=== PATIENT | female | born 1930 | race Caucasian/White ===

== ENCOUNTER 2019-02-02 17:28 | Emergency (ER) | payer OTHER ==
--- NOTE | 2019-02-02 19:11 | RAD REPORT ---
EXAM DESCRIPTION: RAD - Knee Left 2 View - 02/02/2019 7:00 pm CLINICAL HISTORY: fall Fall, trauma, pain COMPARISON: No comparisons FINDINGS: Tricompartmental osteoarthritis is present. No fracture or joint effusion.
--- NOTE | 2019-02-02 19:12 | RAD REPORT ---
EXAM DESCRIPTION: RAD - Knee Right 3 View - 02/02/2019 7:00 pm CLINICAL HISTORY: fall Trauma, fall COMPARISON: No comparisons FINDINGS: Severe tricompartmental osteoarthritis is present. [id number] is noted. No evidence of f racture or joint effusion.
--- NOTE | 2019-02-02 19:51 | RAD REPORT ---
EXAM DESCRIPTION: CT - CTHCSPWOC - 02/02/2019 7:42 pm CLINICAL HISTORY: Trauma, head and neck injury. fall, head injury COMPARISON: <Comparisons> TECHNIQUE: Axial 5 mm thick images of the head were obtained. Axial 2 mm thick images of the cervical spine were obtained with sagittal and coronal reconstruction images generated and reviewed. All CT scans are performed using dose optimization technique as appropriate and may include automated exposure control or mA/KV adjustment according to patient size. FINDINGS: CT HEAD WITHOUT CONTRAST: No acute hemorrhage, hydrocephalus or extra-axial collection is identified.Moderate generalized brain atrophy is present with moderate periventricular and deep white matter chronic microvascular ischemi c changes.No areas of brain edema or midline shift. The paranasal sinuses and mastoids are clear.The calvarium is intact. CT CERVICAL SPINE WITHOUT CONTRAST: No fracture or subluxation.Mild lower cervical degenerative changes.No prevertebral soft tissues swel ling is identified. IMPRESSION: No acute intracranial or cervical spine findings.
--- NOTE | 2019-02-02 19:58 | RAD REPORT ---
EXAM DESCRIPTION: CT - CTFB CLINICAL HISTORY: fall Trauma, fall, facial pain and swelling. COMPARISON: No comparisons TECHNIQUE: Axial 2 mm thick images of the face were obtained with sagittal and coronal reconstructio n images. All CT scans are performed using dose optimization technique as appropriate and may include automated exposure control or mA/KV adjustment according to patient size. FINDINGS: No acute facial bone fracture is seen.The mandible is intact. The globes and orbital contents are grossly unremarkable.The paranasal sinuses and mastoids are clear . IMPRESSION: Negative for facial bone fracture.
[2019-02-02] MEDS ORDERED: HYDROCODONE/APAP 10/325 TAB ONE (20:17)
--- NOTE | 2019-02-02 21:02 | RAD REPORT ---
EXAM DESCRIPTION: RAD - Hip Left 2 View - 02/02/2019 8:55 pm CLINICAL HISTORY: PAIN Trauma, fall COMPARISON: No comparisons FINDINGS: No fracture or dislocation.
--- NOTE | 2019-02-02 21:03 | RAD REPORT ---
EXAM DESCRIPTION: RAD - Hip Right 2 View - 02/02/2019 8:55 pm CLINICAL HISTORY: PAIN Trauma, fall COMPARISON: No comparisons FINDINGS: No acute fracture or dislocation identified.
--- NOTE | 2019-02-02 21:12 | RAD REPORT ---
EXAM DESCRIPTION: RAD - Pelvis - 02/02/2019 8:55 pm CLINICAL HISTORY: PAIN Fall, pain COMPARISON: PELVIS dated 09/29/2013; Hip Right 2 View dated 02/02/2019 FINDINGS: Diffuse osteopenia. No fracture is seen.
--- NOTE | 2019-02-02 21:38 | ER ---
Nurse's Notes [facility] Name: Dina Thibodeaux Age: 88 yrs Sex: Female : 1930 Arrival Date: 02/02/2019 Time: 17:29 Bed 17 Private MD: Diagnosis: Internal derangement of knee;Superficial injury of head Presentation: 02/02 17:30 Presenting complaint: EMS states: S/P MECHANICAL FALL, NO LOC, B KNEE/HIP PAIN, R ORBIT bp PAIN. Transition of care: patient was not received from another setting of care. Onset of symptoms was February 02, 2019 at 17:00. Risk Assessment: Do you want to hurt yourself or someone else? Patient reports no desire to harm self or others. Initial Sepsis Screen: Does the patient meet any 2 criteria? No. Patient's initial sepsis screen is negative. Does the patient have a suspected source of infection? No. Patient's initial sepsis screen is negative. Care prior to arrival: None. 17:30 Method Of Arrival: EMS: [facility] bp 17:30 Acuity: MARIANO 3 bp Triage Assessment: 17:30 General: Appears in no apparent distress. comfortable, obese, Behavior is calm, bp cooperative, appropriate for age. Pain: Complains of pain in right eye, left hip, right hip, right knee and left knee. EENT: No deficits noted. Neuro: Level of Consciousness is awake, alert, obeys commands, Oriented to person, place, time, situation, Appropriate for age. Cardiovascular: No deficits noted. Respiratory: No deficits noted. GI: No signs and/or symptoms were reported involving the gastrointestinal system. : No signs and/or symptoms were reported regarding the genitourinary system. Derm: No deficits noted. Musculoskeletal: No deficits noted. Historical: - Allergies: 17:37 No Known Allergies; bp - Home Meds: 17:37 escitalopram oxalate 10 mg oral tab 1 tab once daily [Active]; aripiprazole 5 mg oral bp tab 1 tab once daily [Active]; folic acid 20 mg Oral cap daily [Active]; Arthrotec 75 75-200 mg-mcg oral TbID 1 tab 2 times per day [Active]; omeprazole 20 mg Oral cpDR 1 cap once daily [Active]; - PMHx: 17:37 Arthritis; bp - Immunization history:: Adult Immunizations up to date. - Social history:: Smoking status: Patient/guardian denies using tobacco. - Ebola Screening: : No symptoms or risks identified at this time. Screenin:30 Abuse screen: Denies threats or abuse. Denies injuries from another. Nutritional bp screening: No deficits noted. Tuberculosis screening: No symptoms or risk factors identified. Fall Risk None identified. Assessment: 17:30 General: SEE TRIAGE NOTE. bp 18:28 Reassessment: PROVIDER AT B/S. bp 19:15 Reassessment: Patient appears in no apparent distress at this time. Patient and/or cc3 family updated on plan of care and expected duration. Pain level reassessed. Patient is alert, oriented x 3, equal unlabored respirations, skin warm/dry/pink. Received this female patient from morning shift RN Manny as a case of fall injury. No IV cannula in situ. General: Appears in no apparent distress. uncomfortable, Behavior is calm, cooperative, appropriate for age. Pain: Complains of pain in left leg and right leg and pelvis and right eye and right hip and left hip and right knee and left knee. Neuro: Level of Consciousness is awake, alert, obeys commands, Oriented to person, place, time, situation, Appropriate for age. Cardiovascular: Denies chest pain, Heart tones S1 S2 present Capillary refill < 3 seconds in bilateral fingers Patient's skin is warm and dry. Respiratory: Airway is patent Respiratory effort is even, unlabored, Respiratory pattern is regular, symmetrical, Breath sounds are clear bilaterally. GI: Abdomen is round obese, Bowel sounds present X 4 quads. Abd is soft and non tender X 4 quads. : No signs and/or symptoms were reported regarding the genitourinary system. EENT: Sclera/Cornea are reddened in right eye. Derm: Skin is intact, is fragile, Skin is pink, warm \T\ dry. normal, Bruising that is on right eye, right knee. Musculoskeletal: Circulation, motion, and sensation intact. Swelling present in right knee. Injury Description: Head injury. 20:25 Reassessment: Patient appears in no apparent distress at this time. Patient and/or cc3 family updated on plan of care and expected duration. Pain level reassessed. Patient is alert, oriented x 3, equal unlabored respirations, skin warm/dry/pink. 21:45 Reassessment: Patient appears in no apparent distress at this time. Patient and/or cc3 family updated on plan of care and expected duration. Pain level reassessed. Patient is alert, oriented x 3, equal unlabored respirations, skin warm/dry/pink. AALIYAH Pulido discharged the patient home, no prescription given. No IV cannula in situ. Patient left ER vitally stable by wheelchair escorted by industrial technology education teacher Lindsay. No valuables left in the patient's room. Patient denies pain at this time. Patient states feeling better. Patient states symptoms have improved. Vital Signs: 17:30 BP 135 / 69; Pulse 70; Resp 17; Temp 97.1; Pulse Ox 100% ; Weight 100.24 kg; Height 5 bp ft. 4 in. (162.56 cm); 18:28 BP 131 / 54; Pulse 69; Resp 17; Pulse Ox 100% ; bp 19:30 BP 138 / 64; Pulse 75; Resp 18 S; Temp 97.9(O); Pulse Ox 100% on R/A; cc3 20:13 BP 129 / 67; Pulse 73; Resp 16 S; Pulse Ox 99% on R/A; cc3 21:30 BP 132 / 61; Pulse 68; Resp 16 S; Pulse Ox 100% on R/A; Pain 0/10; cc3 17:30 Body Mass Index 37.93 (100.24 kg, 162.56 cm) bp ED Course: 17:29 Patient arrived in ED. bp 17:30 Arm band placed on. bp 17:30 Patient has correct armband on for positive identification. Bed in low position. Call bp light in reach. Side rails up X2. 17:31 Triage completed. bp 18:20 Bartolome Pulido PA is PHCP. jmm 18:20 Neto Gaston MD is Attending Physician. jmm 18:27 Manny Garcia, DANIELLE is Primary Nurse. bp 19:02 Knee Right 3 View XRAY In Process Unspecified. EDMS 19:02 Knee Left 2 View XRAY In Process Unspecified. EDMS 19:05 Assisted to bedside commode. Linen changed. mb4 19:06 Bed in low position. Call light in reach. Side rails up X2. mb4 19:42 CT Head C Spine In Process Unspecified. EDMS 19:42 CT Facial Bones W/O Con In Process Unspecified. EDMS 20:57 Pelvis In Process Unspecified. EDMS 20:58 Hip Right 2 View In Process Unspecified. EDMS 20:58 Hip Left 2 View In Process Unspecified. EDMS 21:45 No provider procedures requiring assistance completed. Patient did not have IV access cc3 during this emergency room visit. Administered Medications: 20:22 Drug: [place] 10 mg-325 mg 1 tabs {Note: RASS - 0.} Route: PO; ca1 21:30 Follow up: Response: No adverse reaction; Pain is decreased; RASS: Alert and Calm (0) cc3 Outcome: 21:37 Discharge ordered by MD. leonard 21:45 Discharged to home via wheelchair, with family. cc3 21:45 Condition: stable 21:45 Discharge instructions given to patient, family, Instructed on discharge instructions, follow up and referral plans. Demonstrated understanding of instructions, follow-up care. 22:05 Patient left the ED. cc3 Signatures: Dispatcher [employer] EDMS Bartolome Pulido PA PA jmm Peltier, Brian, DANIELLE RN Paige Hyatt mb4 Kathi Leon cc3 Gayathri Donovan RN RN ca1
--- NOTE | 2019-02-02 21:38 | EDPHYS ---
Physician Documentation [facility] Name: Dina Thibodeaux Age: 88 yrs Sex: Female : 1930 Arrival Date: 02/02/2019 Time: 17:29 Bed 17 Private MD: ED Physician Neto Gaston HPI: 02/02 18:25 This 88 yrs old Female presents to ER via EMS with complaints of Fall Injury. jmm 18:25 Details of fall: The patient fell from an upright position, while walking. Onset: The jm symptoms/episode began/occurred acutely, just prior to arrival. Associated injuries: The patient sustained face, knees, hips. This is an 88 year old female with a history of arthritis that presents to the ED with complaints of bilateral knee pain after a fall from a standing position just prior to arrival. Patient denies LOC, vomiting. Focal point of pain is the right knee. . Historical: - Allergies: 17:37 No Known Allergies; bp - Home Meds: 17:37 escitalopram oxalate 10 mg oral tab 1 tab once daily [Active]; aripiprazole 5 mg oral bp tab 1 tab once daily [Active]; folic acid 20 mg Oral cap daily [Active]; Arthrotec 75 75-200 mg-mcg oral TbID 1 tab 2 times per day [Active]; omeprazole 20 mg Oral cpDR 1 cap once daily [Active]; - PMHx: 17:37 Arthritis; bp - Immunization history:: Adult Immunizations up to date. - Social history:: Smoking status: Patient/guardian denies using tobacco. - Ebola Screening: : No symptoms or risks identified at this time. ROS: 18:25 Constitutional: Negative for fever, chills, and weight loss, Cardiovascular: Negative jmm for chest pain, palpitations, and edema, Respiratory: Negative for shortness of breath, cough, wheezing, and pleuritic chest pain. 18:25 MS/extremity: Positive for injury or acute deformity, pain. 18:25 All other systems are negative. Exam: 18:25 Constitutional: This is a well developed, well nourished patient who is awake, alert, jmm and in no acute distress. Eyes: EOMI, no conjunctival erythema appreciated ENT: Moist Mucus Membranes Neck: Trachea midline, Supple Chest/axilla: Normal chest wall appearance and motion. 18:25 Cardiovascular: Regular rate and rhythm. No edema appreciated Respiratory: Normal respirations, no respiratory distress appreciated Abdomen/GI: Non distended, soft Back: Normal ROM 18:25 Head/face: abrasion noted to the bridge of the nose. 18:25 Musculoskeletal/extremity: right knee is diffusely tender to palpation, compartments are soft, NVI. Left knee non tender to palpation, full dorsalis pulse bilaterally. . 18:25 Skin: Appearance: Color: normal in color. 18:25 Neuro: Orientation: is normal, Mentation: is normal, Memory: is normal. 18:25 Psych: Behavior/mood is pleasant, cooperative. Vital Signs: 17:30 BP 135 / 69; Pulse 70; Resp 17; Temp 97.1; Pulse Ox 100% ; Weight 100.24 kg; Height 5 bp ft. 4 in. (162.56 cm); 18:28 BP 131 / 54; Pulse 69; Resp 17; Pulse Ox 100% ; bp 19:30 BP 138 / 64; Pulse 75; Resp 18 S; Temp 97.9(O); Pulse Ox 100% on R/A; cc3 20:13 BP 129 / 67; Pulse 73; Resp 16 S; Pulse Ox 99% on R/A; cc3 21:30 BP 132 / 61; Pulse 68; Resp 16 S; Pulse Ox 100% on R/A; Pain 0/10; cc3 17:30 Body Mass Index 37.93 (100.24 kg, 162.56 cm) bp Procedures: 21:35 Splinting: Splint applied to right leg using knee immobilizer, applied by techJennifer puga Examined by me, post splint application: neurovascular intact, 2+ distal pulses palpable, brisk capillary refill noted, Patient tolerated well. MDM: 18:25 Patient medically screened. [facility] 21:35 Data reviewed: vital signs, nurses notes. Counseling: I had a detailed discussion with edd the patient and/or guardian regarding: the historical points, exam findings, and any diagnostic results supporting the discharge/admit diagnosis, radiology results, the need for outpatient follow up, to return to the emergency department if symptoms worsen or persist or if there are any questions or concerns that arise at home. ED course: imaging studies are negative. patient advised to follow up with ortho for reevaluation. patient and family understood and agrees with the plan of care. . 02/02 18:32 Order name: Knee Right 3 View XRAY; Complete Time: 19:30 [facility] 02/02 18:32 Order name: Knee Left 2 View XRAY; Complete Time: 19:30 [facility] 02/02 18:32 Order name: CT Head C Spine; Complete Time: 20:07 [facility] 02/02 18:32 Order name: CT Facial Bones W/O Con; Complete Time: 20:07 [facility] 02/02 20:37 Order name: Pelvis; Complete Time: 21:23 [facility] 02/02 20:37 Order name: Hip Right 2 View; Complete Time: 21:23 [facility] 02/02 20:37 Order name: Hip Left 2 View; Complete Time: 21:23 [facility] 02/02 21:15 Order name: Knee Immobilizer; Complete Time: 21:33 [facility] Administered Medications: 20:22 Drug: [place] 10 mg-325 mg 1 tabs {Note: RASS - 0.} Route: PO; ca1 21:30 Follow up: Response: No adverse reaction; Pain is decreased; RASS: Alert and Calm (0) cc3 Disposition: 02/03 07:12 Co-signature as Attending Physician, Neto Gaston MD. rn Disposition: 02/02/19 21:37 Discharged to Home. Impression: Internal derangement of knee, Superficial injury of head. - Condition is Stable. - Discharge Instructions: Head Injury, Adult, Knee Pain. - Medication Reconciliation Form, Thank You Letter, Antibiotic Education, Prescription Opioid Use form. - Follow up: Private Physician; When: 2 - 3 days; Reason: Recheck today's complaints, Continuance of care, Re-evaluation by your physician. Signatures: Dispatcher [employer] [facility] Bartolome Pulido PA PA [facility] Neto Gaston MD MD rn Peltier, Brian, RN RN bp Cordel, Charlene cc3 Gayathri Donovan RN RN ca1 Corrections: (The following items were deleted from the chart) 02/02 22:05 21:37 02/02/2019 21:37 Discharged to Home. Impression: Internal derangement of knee; cc3 Superficial injury of head. Condition is Stable. Forms are Medication Reconciliation Form, Thank You Letter, Antibiotic Education, Prescription Opioid Use. Follow up: Private Physician; When: 2 - 3 days; Reason: Recheck today's complaints, Continuance of care, Re-evaluation by your physician. edd
[2019-02-02 22:12] VITALS: TEMP 97.1; O2SAT 100
[2019-02-02 22:13] VITALS: BP 131/54
== END 2019-02-02 22:05 | disposition home or self-care (01) ==
LOC: ER 17:28
DX: M23.92 Unspecified internal derangement of left knee (principal); M23.91 Unspecified internal derangement of right knee; S00.90XA Unspecified superficial injury of unspecified part of head, initial encounter; W18.30XA Fall on same level, unspecified, initial encounter; Y93.9 Activity, unspecified; Y92.9 Unspecified place or not applicable; M19.90 Unspecified osteoarthritis, unspecified site
CPT/HCPCS: 70450; 70486; 72125; 72170; 76377; 99284

== ENCOUNTER 2019-02-08 21:43 | Emergency (ER) | payer OTHER ==
--- NOTE | 2019-02-08 23:28 | EDPHYS ---
Physician Documentation [facility] Name: Dina Thibodeaux Age: 88 yrs Sex: Female : 1930 Arrival Date: 02/08/2019 Time: 21:45 Bed 5 Private MD: ED Physician Eleazar Guaman HPI: 02/08 22:30 This 88 yrs old Female presents to ER via Wheelchair with complaints of Knee cp Pain. 22:30 The patient presents with pain, swelling, tenderness, redness. cp 22:30 The complaints affect the right retana. Context: Patient reports she was seen in this ED cp last Tuesday after sustaining fall from standing and landing on both knees and face. Patient had xrays of knees that were negative for fracture but has noticed redness of lower leg today, and increased swelling. Associated signs and symptoms: Pertinent positives: calf tenderness, warmth, Pertinent negatives fever, numbness, weakness. Treatment prior to arrival includes: no previous treatment. Historical: - Allergies: 22:11 No Known Allergies; jd3 - Home Meds: 22:11 aripiprazole 5 mg Oral tab 1 tab once daily [Active]; Arthrotec 75 75-200 mg-mcg Oral jd3 TbID 1 tab 2 times per day [Active]; escitalopram oxalate 10 mg Oral tab 1 tab once daily [Active]; folic acid 20 mg Oral cap daily [Active]; omeprazole 20 mg Oral cpDR 1 cap once daily [Active]; - PMHx: 22:11 Arthritis; jd3 - Immunization history:: Adult Immunizations up to date, Flu vaccine is up to date. - Social history:: Smoking status: Patient/guardian denies using tobacco. - Ebola Screening: : Patient negative for fever greater than or equal to 101.5 degrees Fahrenheit, and additional compatible Ebola Virus Disease symptoms. ROS: 22:35 Constitutional: Negative for body aches, chills, fever, poor PO intake. cp 22:35 Eyes: Negative for injury, pain, redness, and discharge. cp 22:35 Cardiovascular: Negative for chest pain. 22:35 Respiratory: Negative for cough, shortness of breath, wheezing. 22:35 MS/extremity: Positive for pain, swelling, tenderness, of the right knee and right lower leg, Negative for decreased range of motion, paresthesias. 22:35 Skin: Positive for erythema, of the right lower leg. 22:35 All other systems are negative. Exam: 22:45 Constitutional: The patient appears in no acute distress, alert, awake, cp non-diaphoretic, non-toxic, well developed, well nourished. 22:45 Head/Face: Normocephalic, atraumatic. cp 22:45 Musculoskeletal/extremity: Extremities: grossly normal except: noted in the right knee cp and right lower leg: erythema, pain, swelling, tenderness, ROM: full passive range of motion, in the right knee, Perfusion: the extremity is normally perfused throughout, Sensation intact. DVT Exam: pain, that is mild, of the right leg, swelling, that is mild, of the right leg, tenderness, that is mild, of the right leg, erythema, that is mild, of the right leg, increased warmth, that is mild, of the right leg. 22:45 Chest/axilla: Inspection: normal. cp 22:45 Cardiovascular: Rate: normal. 22:45 Respiratory: the patient does not display signs of respiratory distress, Respirations: normal, no use of accessory muscles, no retractions. 22:45 Neuro: Orientation: to person, place \T\ time. Mentation: is normal. Vital Signs: 22:11 BP 147 / 57; Pulse 83; Resp 19 S; Temp 98.0(O); Pulse Ox 100% on R/A; Weight 102.06 kg jd3 (R); Height 5 ft. 4 in. (162.56 cm) (R); Pain 10/10; 23:06 BP 135 / 60; Pulse 72; Resp 17 S; Pulse Ox 100% on R/A; jd3 23:46 BP 132 / 70; Pulse 74; Resp 18 S; Pulse Ox 99% on R/A; jd3 22:11 Body Mass Index 38.62 (102.06 kg, 162.56 cm) jd3 MDM: 22:02 Patient medically screened. cp 23:00 Differential diagnosis: closed fracture, contusion, cellulitis, DVT. cp 23:21 ED course: US tech reports US negative for DVT. cp 23:26 Data reviewed: vital signs, nurses notes, radiologic studies, ultrasound. cp 23:26 Counseling: I had a detailed discussion with the patient and/or guardian regarding: the cp historical points, exam findings, and any diagnostic results supporting the discharge/admit diagnosis, radiology results, the need for outpatient follow up, a family practitioner, to return to the emergency department if symptoms worsen or persist or if there are any questions or concerns that arise at home. ED course: VSS. Will discharge to home for continued monitoring. RX for oral Doxy given and instructions to return to ED worsening symptoms. 02/08 22:37 Order name: US Extremity Venous Unilateral Ltd cp 02/08 23:23 [place] [facility] Order: outline area of erythema; Complete Time: 23:45 cp Administered Medications: 23:44 Drug: Doxycycline 100 mg Route: PO; jd3 23:44 Follow up: Response: Medication administered at discharge. jd3 Disposition: 23:49 Co-signature as Attending Physician, Eleazar Guaman MD. pktaras Disposition: 02/08/19 23:27 Discharged to Home. Impression: Cellulitis of right lower limb. - Condition is Stable. - Discharge Instructions: Cellulitis, Adult. - Prescriptions for Doxycycline Hyclate 100 mg Oral Tablet - take 1 tablet by ORAL route every 12 hours; 20 tablet. - Medication Reconciliation Form, Thank You Letter, Antibiotic Education, Prescription Opioid Use form. - Follow up: Private Physician; When: 2 - 3 days; Reason: Recheck today's complaints. - Problem is new. - Symptoms have improved. Signatures: Dispatcher [employer] EDMS Eleazar Guaman MD MD pkDeepak Gambino PA PA cp Davies, Jonathon RN RN jd3 Corrections: (The following items were deleted from the chart) 23:47 23:27 02/08/2019 23:27 Discharged to Home. Impression: Cellulitis of right lower limb. jd3 Condition is Stable. Forms are Medication Reconciliation Form, Thank You Letter, Antibiotic Education, Prescription Opioid Use. Follow up: Private Physician; When: 2 - 3 days; Reason: Recheck today's complaints. Problem is new. Symptoms have improved. cp
--- NOTE | 2019-02-08 23:28 | ER ---
Nurse's Notes [facility] Name: Dina Thibodeaux Age: 88 yrs Sex: Female : 1930 Arrival Date: 02/08/2019 Time: 21:45 Bed 5 Private MD: Diagnosis: Cellulitis of right lower limb Presentation: 02/08 22:09 Presenting complaint: Patient states: "I fell last Tuesday on my knees. today I noticed jd3 redness on my right knee that went down my leg and my family member that is a nurse was worried I had a blood clot. I am also having increased pain in the right knee.". Transition of care: patient was not received from another setting of care. Onset of symptoms was February 08, 2019. Risk Assessment: Do you want to hurt yourself or someone else? Patient reports no desire to harm self or others. Initial Sepsis Screen: Does the patient meet any 2 criteria? No. Patient's initial sepsis screen is negative. Does the patient have a suspected source of infection? No. Patient's initial sepsis screen is negative. Care prior to arrival: None. 22:09 Method Of Arrival: Wheelchair jd3 22:09 Acuity: MARIANO 3 jd3 Historical: - Allergies: 22:11 No Known Allergies; jd3 - Home Meds: 22:11 aripiprazole 5 mg Oral tab 1 tab once daily [Active]; Arthrotec 75 75-200 mg-mcg Oral jd3 TbID 1 tab 2 times per day [Active]; escitalopram oxalate 10 mg Oral tab 1 tab once daily [Active]; folic acid 20 mg Oral cap daily [Active]; omeprazole 20 mg Oral cpDR 1 cap once daily [Active]; - PMHx: 22:11 Arthritis; jd3 - Immunization history:: Adult Immunizations up to date, Flu vaccine is up to date. - Social history:: Smoking status: Patient/guardian denies using tobacco. - Ebola Screening: : Patient negative for fever greater than or equal to 101.5 degrees Fahrenheit, and additional compatible Ebola Virus Disease symptoms. Screenin:14 Abuse screen: Denies threats or abuse. Nutritional screening: No deficits noted. jd3 Tuberculosis screening: No symptoms or risk factors identified. Fall Risk Ambulatory Aid- None/Bed Rest/Nurse Assist (0 pts). Gait- Normal/Bed Rest/Wheelchair (0 pts) Mental Status- Oriented to own ability (0 pts). Total Santoyo Fall Scale indicates No Risk (0-24 pts). Assessment: 22:12 General: Appears in no apparent distress. uncomfortable, Behavior is calm, cooperative, jd3 appropriate for age. Pain: Complains of pain in right knee Quality of pain is described as aching, tender. Neuro: Level of Consciousness is awake, alert, obeys commands, Oriented to person, place, time, situation. Cardiovascular: Capillary refill < 3 seconds Patient's skin is warm and dry. Respiratory: Airway is patent Respiratory effort is even, unlabored, Respiratory pattern is regular, symmetrical, Denies cough, shortness of breath. GI: No signs and/or symptoms were reported involving the gastrointestinal system. : No signs and/or symptoms were reported regarding the genitourinary system. EENT: No signs and/or symptoms were reported regarding the EENT system. Derm: Skin is intact, Skin is dry, Skin is normal, Skin temperature is warm Bruising that is dark purple, on right knee redness note to right knee. Musculoskeletal: Circulation, motion, and sensation intact. Range of motion: intact in all extremities. 23:06 Reassessment: Patient appears in no apparent distress at this time. No changes from jd3 previously documented assessment. Patient and/or family updated on plan of care and expected duration. Pain level reassessed. Patient is alert, oriented x 3, equal unlabored respirations, skin warm/dry/pink. awaiting ultrasound. 23:45 Reassessment: Patient appears in no apparent distress at this time. Patient and/or jd3 family updated on plan of care and expected duration. Pain level reassessed. Patient is alert, oriented x 3, equal unlabored respirations, skin warm/dry/pink. pt reported understanding of discharge instructions. assisted pt to front of ER with family with wheelchair. Patient denies pain at this time. Vital Signs: 22:11 BP 147 / 57; Pulse 83; Resp 19 S; Temp 98.0(O); Pulse Ox 100% on R/A; Weight 102.06 kg jd3 (R); Height 5 ft. 4 in. (162.56 cm) (R); Pain 10/10; 23:06 BP 135 / 60; Pulse 72; Resp 17 S; Pulse Ox 100% on R/A; jd3 23:46 BP 132 / 70; Pulse 74; Resp 18 S; Pulse Ox 99% on R/A; jd3 22:11 Body Mass Index 38.62 (102.06 kg, 162.56 cm) jd3 ED Course: 21:45 Patient arrived in ED. ds1 21:56 Deepak John PA is PHCP. cp 21:56 Eleazar Guaman MD is Attending Physician. cp 22:09 Favian Denton, RN is Primary Nurse. jd3 22:10 Triage completed. jd3 22:12 Arm band placed on. jd3 22:14 Patient has correct armband on for positive identification. Placed in gown. Bed in low jd3 position. Call light in reach. Side rails up X2. Adult w/ patient. 23:28 US Extremity Venous Unilateral Ltd In Process Unspecified. EDMS 23:45 No provider procedures requiring assistance completed. Patient did not have IV access jd3 during this emergency room visit. Administered Medications: 23:44 Drug: Doxycycline 100 mg Route: PO; jd3 23:44 Follow up: Response: Medication administered at discharge. jd3 Outcome: 23:27 Discharge ordered by . cp 23:45 Discharged to home via wheelchair, with family. jd3 23:45 Condition: stable 23:45 Discharge instructions given to patient, family, Instructed on discharge instructions, follow up and referral plans. medication usage, Demonstrated understanding of instructions, follow-up care, medications, Prescriptions given X 1. 23:47 Patient left the ED. jd3 Signatures: Dispatcher [employer] EDNJ Sophia Knott ds1 Deepak John PA PA cp Favian Denton, RN RN jd3
[2019-02-08] MEDS ORDERED: DOXYCYCLINE 100 MG CAP PO ONE (23:30)
[2019-02-08 23:53] VITALS: TEMP 98
[2019-02-08 23:56] VITALS: BP 132/70; O2SAT 99
--- NOTE | 2019-02-09 07:07 | RAD REPORT ---
EXAM DESCRIPTION: US - Extremity Venous Uni Ltd - 02/08/2019 11:27 pm CLINICAL HISTORY: Right leg pain and swelling COMPARISON: None. TECHNIQUE: Real-time sonographic evaluation of the right lower extremity deep venous systems was per formed. FINDINGS: Normal compressibility, flow augmentation, phasic flow and spontaneous flow are identified in the right lower extremity common femoral, superficial femoral, popliteal and posterior tibial vei ns. No intraluminal filling defects seen. IMPRESSION: No DVT in the right lower extremity.
--- OUTSIDE RECORDS SUMMARY | 2019-02-12 04:31 | XMS REPORT ---
:1930 [facility] Address [address] [place] [address] Care Team Providers Name Role Phone CATIE LINDER Primary Care Provider Unavailable Problems This patient has no known problems. Allergies, Adverse Reactions, Alerts This patient has no known allergies or adverse reactions. Medications This patient has no known medications. Encounters Start End Encounter Admission Attending Care Care Encounter Date/Time Date/Time Type Type Clinicians Facility Department ID 2017-01-11 2017-01-11 Outpatient [facility] [id number] 12:05:00 12:05:00 Results Test Description Test Time Test Comments Text Results Atomic Results Result Comments XR KNEE 2V.-RIGHT 2017-01-11 12:39:25 XR KNEE 2V.-RIGHTLOCATION: [id number]:M17.11: UNILATERAL PRIMARY OSTEOARTHRITIS, RIGHT KNEE COMPARISON: Right knee radiographs 08/13/2015DISCUSSION:Frontal and lateral radiographs of the right knee were submitted forinterpretation (2 total). Bone demineralization limits evaluation. No definite acute fracture or dislocation is seen.Advanced tricompartmental degenerative changes are present.IMPRESSION:1. No acute osseous abnormalities. 2. Advanced tricompartmental degenerative changes.
== END 2019-02-08 23:47 | disposition home or self-care (01) ==
LOC: ER 21:43
DX: L03.115 Cellulitis of right lower limb (principal)
CPT/HCPCS: 93971; 99283